=== PATIENT | male | born 1995 | race Asian ===

== ENCOUNTER 2024-10-02 15:53 | Emergency (ER) | payer BC | END 2024-10-02 16:36 | disposition home or self-care (01) | LOC: ER 15:53 | DX: M54.9 Dorsalgia, unspecified (principal) | CPT/HCPCS: 72110; 99283 ==

== ENCOUNTER → 2024-11-20 | Outpatient (CLI) | payer BC ==
[~2024-11-20] MED LIST: DICL100G58 TP; MELO-106 PO
== END | disposition home or self-care (01) ==
LOC: MRI 11:19
DX: M54.50 Low back pain, unspecified (principal)
CPT/HCPCS: 72148